=== PATIENT | male | born 1990 | race Caucasian/White ===

== ENCOUNTER 2018-09-13 01:54 | Emergency (ER) | payer SELFPAY ==
[~2018-09-13] VITALS: Ht 177.8 cm; Wt 78.0 kg
[2018-09-13] MEDS ORDERED: ondansetron 4mg rapidly disintigrating tab PO ONE (03:45)
[2018-09-13] MEDS ORDERED: ONDA4TAB12 PO (04:20)
[2018-09-13 04:39] VITALS: BP 132/86
== END 2018-09-13 04:40 | disposition home or self-care (01) ==
LOC: ER 01:55
DX: R11.2 Nausea with vomiting, unspecified (principal); R05 Cough; R07.89 Other chest pain; Z79.899 Other long term (current) drug therapy
CPT/HCPCS: 71045; 93005; 99283

== ENCOUNTER 2021-06-10 18:46 | Emergency (ER) | payer OTHER ==
[~2021-06-10] VITALS: Ht 172.7 cm; Wt 88.6 kg
[~2021-06-10 18:46] MED LIST: ONDA4TAB12 PO
[2021-06-10 19:15] VITALS: BP 134/82
[2021-06-11] MEDS ORDERED: ketorolac tromethamine 15mg/ml inj. IM ONE (00:50)
[2021-06-11] MEDS ORDERED: acetaminophen 325mg tablet PO ONE (00:50)
[2021-06-11] MEDS ORDERED: METH-797 PO (01:06)
[2021-06-11] MEDS ORDERED: DIAZ-351 PO (01:06)
== END 2021-06-11 01:17 | disposition home or self-care (01) ==
LOC: ER 18:48
DX: S46.911A Strain of unspecified muscle, fascia and tendon at shoulder and upper arm level, right arm, initial encounter (principal); S46.001A Unspecified injury of muscle(s) and tendon(s) of the rotator cuff of right shoulder, initial encounter; M62.838 Other muscle spasm; G56.91 Unspecified mononeuropathy of right upper limb; F79 Unspecified intellectual disabilities; Z72.89 Other problems related to lifestyle; Z79.899 Other long term (current) drug therapy; X50.0XXA Overexertion from strenuous movement or load, initial encounter; Y93.89 Activity, other specified; Y92.89 Other specified places as the place of occurrence of the external cause; Y99.8 Other external cause status
CPT/HCPCS: 29105; 73030; 99283; J1885

== ENCOUNTER 2022-02-26 02:00 | Emergency (ER) | payer OTHER ==
[~2022-02-26] VITALS: Ht 177.8 cm; Wt 93.2 kg
[~2022-02-26 02:00] MED LIST changes: +DIAZ-351 PO; +METH-797 PO
[2022-02-26 03:46] VITALS: BP 120/80
== END 2022-02-26 03:50 | disposition home or self-care (01) ==
LOC: ER 02:00
DX: M25.521 Pain in right elbow (principal)
CPT/HCPCS: 73080; 99283